=== PATIENT | female | born 1975 | race Caucasian/White ===

== ENCOUNTER 2017-01-12 12:06 | Emergency (ER) | payer SELFPAY ==
[2017-01-12] MEDS ORDERED: Ondansetron HCl/PF 4 MG/2 ML Vial ONE (12:45)
[2017-01-12 13:24] LABS: Potassium 4.4 mmol/L (3.5-5.1)
[2017-01-12 13:26] LABS: Carbon Dioxide 20 mmol/L (22-29); Chloride 109 mmol/L (98-107); Sodium 140 mmol/L (136-145)
[2017-01-12 13:27] LABS: Albumin 3.8 g/dL (3.5-5.0); BUN (Urea Nitrogen) 11 mg/dL (7.0-18.7); Bilirubin, Total Less than 0.3 mg/dL (0.2-1.2); Calc. Creatinine Clearance 0 mL/min (70-130); Calcium 9.2 mg/dL (7.8-10.44); Estimated GFR-MDRD Greater than 90; Globulin 2.7 g/dL (2.4-3.5); Glucose 129 mg/dL (70-105); Protein, Total 6.5 g/dL (6.0-8.3)
[2017-01-12 13:28] LABS: ALT (SGPT) 17 U/L (8-55); AST (SGOT) 24 U/L (5-34); Alkaline Phosphatase 82 U/L (40-150); CRP (Inflammatory) Less than 0.50 mg/dL (= or < 0.5)
[2017-01-12 13:29] LABS: Anion Gap 15 mmol/L (10-20)
[2017-01-12 13:33] LABS: Hemoglobin 14.6 g/dL (12.0-16.0); Mean Corpuscular HGB CONC 34.3 g/dL (32.0-36.0); Mean Corpuscular Hemoglobin 33.1 pg (27.0-31.0); Mean Corpuscular Volume 96.5 fl (81.0-99.0); Mean Platelet Volume 8.4 fL (7.4-10.4); Platelet Count 169 thou/uL (130-400); RBC Distribution Width 11.2 % (11.5-14.5); Red Blood Cell (RBC) Count 4.41 mill/uL (4.20-5.40); White Blood Cell (WBC) Count 11.3 thou/uL (4.8-10.8)
[2017-01-12 13:34] LABS: Band 1 % (5-11); Eosinophils 2 % (0-10); Lymphocytes 9 % (21-51); MDiff Complete? YES; Monocytes 2 % (0-10); Neutrophil 48 % (42-75); PLT Morphology Comment Appears Adequate; RBC Morphology Normal; Reactive Lymphocytes 38 % (0-10)
[2017-01-12] MEDS ORDERED: Iopamidol 370 76% 100 ML VIAL ONE (13:47)
--- NOTE | 2017-01-12 14:20 | CT ---
CT ABDOMEN WITH IV CONTRAST CT PELVIS WITH IV CONTRAST: DATE: 01/12/17. HISTORY: Lower buttock pain. History of colorectal cancer. Colostomy. COMPARISON: None available. FINDINGS: The lung bases, liver, spleen, pancreas, bilateral adrenal glands, kidneys, and urinary bladder have a normal CT appearance. Vascular calcifications are seen in the abdominal aorta and involving the iliac arteries. There are postsurgical changes of the pelvis related to hysterectomy. There is also a left lower qu adrant colostomy without evidence of a left hemicolectomy. There is decreased density seen in the p resacral space probably related to mild scarring. There is a small amount of herniation of intraabdominal fat into the colostomy defect. No loops of small bowel are seen. No free fluid, fluid collection, or lymphadenopathy is seen in the abdomen or pelvis. Osseous struc tures are intact. IMPRESSION: 1. No acute findings are seen in the abdomen or pelvis. 2. Postsurgical changes related to left hemicolectomy with left lower quadrant colostomy present. 3. No Ct evidence of metastatic disease. 4. Presacral low-density linear areas probably related to postsurgical scarring. 5. No CT evidence of appendicitis. POS: [facility]
== END 2017-01-12 14:10 | disposition home or self-care (01) ==
LOC: MADERS 12:06
DX: R10.2 Pelvic and perineal pain (principal); E11.9 Type 2 diabetes mellitus without complications; F17.210 Nicotine dependence, cigarettes, uncomplicated
CPT/HCPCS: 74177; 80053; 85025; 86140; 96374; 96375; J2270; J2405

== ENCOUNTER 2017-03-10 12:34 | Emergency (ER) | payer BC, SELFPAY ==
[2017-03-10] MEDS ORDERED: Diazepam 5 MG TAB ONE (13:53)
[2017-03-10] MEDS ORDERED: HYDROcodone/Acetaminophen 10/325 mg Tablet ONE (13:53)
[2017-03-10] MEDS ORDERED: Acetaminophen 325 MG TAB ONE (13:53)
[2017-03-10] MEDS ORDERED: Dexamethasone 4 MG TAB ONE (13:53)
[2017-03-10] MEDS ORDERED: Ibuprofen 800 MG TAB ONE (13:53)
== END 2017-03-10 14:02 | disposition home or self-care (01) ==
LOC: MADERS 12:34
DX: M54.5 Low back pain (principal); E11.9 Type 2 diabetes mellitus without complications; F17.210 Nicotine dependence, cigarettes, uncomplicated
CPT/HCPCS: 99283; J8540